=== PATIENT | female | born 1945 | race Caucasian/White ===

== ENCOUNTER 2025-05-07 05:18 | Observation (INO) ==
--- NOTE | 2025-04-24 08:40 | PAT Medication Instructions ---
Medication Instructions Date of Service April 24, 2025 Home Medications latanoprost 0.005 % eye drops 1 drp ophthalmic (eye) HS acetaminophen 500 mg oral powder packet (Tylenol Extra Strength) 500 mg PO Q6H PRN Take morning of surgery With a small sip of water, OTHERWISE NOTHING TO EAT OR DRINK AFTER MIDNIGHT: acetaminophen 500 mg oral powder packet (Tylenol Extra Strength) 500 mg PO Q6H PRN(if needed) Take evening before surgery latanoprost 0.005 % eye drops 1 drp ophthalmic (eye) HS acetaminophen 500 mg oral powder packet (Tylenol Extra Strength) 500 mg PO Q6H PRN(if needed) Other Notes If you have any questions please call us at [phone] or [phone] or [phone] or [phone]
--- NOTE | 2025-04-26 09:03 | Anesthesiology Consultation ---
Date of Service April 26, 2025 Assessment & Plan (1) Encounter for pre-operative examination: - PONV: NO scop patch. - patient states she will have DNR after discussion with POA-is aware that is suspended aguila-operatively. - Outpatient joint assessment: Patient is currently scheduled for inpatient pathway. If re-evaluated and patient/surgeon requests outpatient pathway, patient is not a candidate for outpatient joint program. Chart Review Chart Review: Acceptable Risk for Surgery and Patient seen in Pre Admission Testing Teaching & Discussion Pre-Anesthesia Teaching/Discussion Notes: Instructed NPO after midnight before surgery, except medications with 15 cc of water. Medication instructions provided according to the PAT guidelines. History Surgery Operation Date: 05/07/25 07:00 Proposed Procedures p Left Total Hip Arthroplasty - Robe Calvo MD Height/Weight Height: 5 ft 1 in Weight: 61.5 kg Allergies Allergy/AdvReac Type Severity Reaction Status Date / Time hydrocodone AdvReac Unknown n/v/d Verified 05/07/25 05:25 codeine AdvReac Nausea Verified 05/07/25 05:25 Ephedrine Analogues AdvReac irregular Verified 05/07/25 05:25 heart beat lisinopril AdvReac Cough Verified 05/07/25 05:25 mushroom AdvReac Diarrhea Verified 05/07/25 05:25 scopolamine AdvReac possible Verified 05/07/25 05:25 mental status changes valsartan AdvReac irregular Verified 05/07/25 05:25 heart beat zolpidem [From Ambien] AdvReac Nausea Verified 05/07/25 05:25 Medications Home Medications Medication Instructions Recorded Confirmed Last Taken latanoprost 0.005 % eye drops 1 drp ophthalmic (eye) HS 12/04/24 05/07/25 05/06/25 22:00 acetaminophen 500 mg tablet 1,000 mg (2 x 500 mg) PO TID pain 05/03/25 05/07/25 05/07/25 04:00 (Tylenol Extra Strength) 30 days #180 tabs aspirin 81 mg tablet,delayed 81 mg PO BID 45 days #90 tabs 05/03/25 05/07/25 Unknown release (Aleksandar Low Dose Aspirin) cefadroxil 500 mg capsule 500 mg PO BID 7 days #14 caps 05/03/25 05/07/25 Unknown ketorolac 10 mg tablet 10 mg PO TID pain 5 days #15 tabs 05/03/25 05/07/25 Unknown ondansetron 4 mg disintegrating 4 mg PO Q8 PRN nausea #20 tabs 05/03/25 05/07/25 Unknown tablet sennosides 8.6 mg tablet (Senokot) 8.6 mg PO BID prevent constipation 05/03/25 05/07/25 Unknown 14 days #28 tabs tramadol 50 mg tablet 50 - 100 mg (1 - 2 x 50 mg) PO Q6 05/03/25 05/07/25 Unknown PRN pain #40 tabs Active Medications Generic Name Dose Route Start Last Admin Trade Name Freq PRN Reason Stop Dose Admin Acetaminophen 1,000 mg 05/07/25 06:00 05/07/25 05:55 Acetaminophen 500 Mg Tab PO 05/07/25 18:00 Not Given PREOP KEYON Celecoxib 200 mg 05/07/25 06:00 05/07/25 05:55 Celebrex 200 Mg Cap PO 05/07/25 18:00 200 mg PREOP KEYON Administration Dexamethasone Sodium Phosphate 10 mg 05/07/25 06:00 05/07/25 05:55 DexamethasonePf 10 Mg/Ml Vial IV 05/07/25 18:00 10 mg PREOP KEYON Administration Famotidine 20 mg 05/07/25 06:00 05/07/25 05:55 Famotidine 20 Mg Tab PO 05/07/25 18:00 20 mg PREOP KEYON Administration Lactated Ringer's 1,000 mls @ 60 mls/hr 05/07/25 06:00 05/07/25 05:56 Lr IV 05/07/25 22:39 Not Given .[id number] KEYON Lactated Ringer's 1,000 mls @ 15 mls/hr 05/07/25 06:00 05/07/25 05:55 Lr IV 05/07/25 18:00 15 mls/hr .Q24H KEYON Administration Metoclopramide HCl 10 mg 05/07/25 06:00 05/07/25 05:55 Metoclopramide Hcl 10 Mg Tablet PO 05/07/25 18:00 10 mg PREOP KEYON Administration Past Medical History Medical History History of postoperative nausea and vomiting pt states had significant PONV after hernia repair and therefore was given a scopolamine patch for a subsequent surgery (unsure which) and feels that scopolamine patch caused mental status changes Elevated blood pressure reading without diagnosis of hypertension PCP monitoring Low back pain History of non anemic vitamin B12 deficiency Cervical radiculopathy follows with [facility] pain clinic Glaucoma Osteoarthritis Patient denies h/o stroke, seizures, heart attack, heart failure, DM, blood clots/DVTs or blood transfusions. Exercise / Class Metabolic Activity III < 4 Walking/Shop/Light housework (ambulates with cane, denies chest discomfort or shortness of breath with usual activities) Past Family History Family History Father Myocardial infarction Mother Stroke Denies family history of Ovarian cancer Prostate cancer Diabetes Breast cancer Lung cancer Colorectal cancer Hypertension Past Surgical History Surgical History History of wisdom tooth extraction History of total hip replacement R KAREN 2018 History of inguinal hernia repair Past Anesthesia History No Family Hx of Anesthesia Complications and Other (mental status changes and hypotension with two surgeries-pt cannot recall which procedures) History of PONV No Hx of Motion Sickness and History of PONV (adverse effects with scop patch) Social History Smoking Status: Never smoker Do You Dip or Chew Tobacco: No Hx Alcohol Use: Yes Alcohol type: beer, wine and hard liquor alcohol intake frequency: a few times a week Hx Substance Use: No Review of Systems Patient denies chest pain, shortness of breath, dyspnea on exertion, snoring, witnessed apneas, reflux, fever, chills, cough, wheezing, or palpitations. Physical Exam Vital Signs Last Vital Signs Temp 36.6 C 05/07/25 05:38 Pulse 43 L 05/07/25 05:38 Resp 18 05/07/25 05:38 BP 158/93 H 05/07/25 05:38 Pulse Ox 97 05/07/25 05:38 O2 Del Method Room Air 05/07/25 05:38 Vitals BP 143/79 P 79 TEMP 97.9 SP02 95% on RA RESP 18 Physical Patient resting comfortably in chair in no acute distress, alert and oriented, responding appropriately throughout visit Full cervical extension range of motion without pain TMD 3.5 finger breadths Mallampati Score 2 Dentition: two crowns, denies chipped or loose teeth, caps, implants or bridges Lungs: normal respiratory effort. Good air movement, clear throughout to auscultation, no adventitious breath sounds Cardiac: regular rate and rhythm, no murmurs noted Carotid arteries: negative bruit bilat Lab Results Anesthesia Preop Results Results Anesthesia Widget: WBC 5.98 K/ul (4.8-10.8) 04/26/25 Hgb 12.0 g/dl (12.0-16.0) 04/26/25 Hct 35.6 % (37.0-47.0) L 04/26/25 Plt 226 K/uL (130-400) 04/26/25 Na 138 mmol/L (136-145) 04/26/25 K 3.7 mmol/L (3.5-5.1) 04/26/25 Cl 105 mmol/L (98-107) 04/26/25 CO2 27 mmol/L (21-32) 04/26/25 BUN 13 mg/dl (6-23) 04/26/25 Creat 0.65 mg/dl (0.6-1.2) 04/26/25 Glucose Level 131 mg/dl (70-99(Fasting)) H 04/26/25 PT 10.7 Seconds (9.0-12.0) 04/26/25 PTT 30 Seconds (21-31) 04/26/25 INR 1.0 (0.9-1.1) 04/26/25 Blood Type A Positive 04/26/25 Antibody Screen NEGATIVE 04/26/25 Testing Electrocardiogram Date: 04/26/25 NSR, rate 67 bpm Chest X-Ray Date: 04/26/25 No active disease in the chest.
[2025-05-07] MEDS: LR 500ML BOLUS, THEN 15ML/HR IV SCH (05:55)
[2025-05-07] MEDS: CeleBREX 200 MG CAP PO SCH (05:55)
[2025-05-07] MEDS: FAMOTIDINE 20 MG TAB PO SCH (05:55)
[2025-05-07] MEDS: ACETAMINOPHEN 500 MG TAB PO SCH ×2 (05:55→14:01)
[2025-05-07] MEDS: dexAMETHasone**PF** 10 MG/ML VIAL IV SCH (05:55)
[2025-05-07] MEDS: METOCLOPRAMIDE HCL 10 MG TABLET PO SCH (05:55)
[2025-05-07] MEDS: LR 60ML/HR IV SCH (05:56)
[2025-05-07] MEDS ORDERED: LIDOCAINE 2% 2 ML VIAL/AMP(20MG/ML) INFIL ONE (06:19)
[2025-05-07] MEDS ORDERED: MIDAZOLAM HCL 1 MG/ML 2ML VIAL ONE (06:19)
[2025-05-07] MEDS ORDERED: GLYCOPYRROLATE 0.2 MG/ML VIAL ONE ×3 (06:22→08:15)
[2025-05-07] MEDS ORDERED: PROPOFOL IV EMULSION 10 MG/ML 100 ML VIAL IV ONE (06:28)
[2025-05-07] MEDS ORDERED: BUPIVACAINE 0.5 % 5 MG/1 ML PF 10ML VIAL ONE (06:31)
--- NOTE | 2025-05-07 06:44 | History & Physical Bridge Note ---
Date of Service May 07, 2025 History & Physical Bridge Note I have examined the patient, reviewed the History & Physical and in the interval since the performance of the History & Physical I have noted the following changes of clinical significance: no changes noted
[2025-05-07] MEDS ORDERED: ATROPINE SULFATE 0.1 MG/ML 10ML SYR IV PRN (06:48)
[2025-05-07] MEDS: TRANEXAMIC ACID 1,000 MG **IV Pre-op IV SCH (06:48)
[2025-05-07] MEDS ORDERED: ONDANSETRON INJ 2 MG/ML 2 ML VIAL ONE (07:06)
[2025-05-07] MEDS ORDERED: PHENYLEPHRINE HCL 10 MG/ML VIAL ONE (07:19)
[2025-05-07] MEDS: BUPIVACAINE/EPINEPHRINE 0.5% MPF 1:200,000 30 ML VIAL ONE (07:42)
[2025-05-07] MEDS ORDERED: ESMOLOL HCL INJ 10 MG/ML 10ML VIAL IV ONE (07:53)
--- NOTE | 2025-05-07 09:02 | Operative Report ---
PG Post Operative Report Pre & Post Diagnosis Operation Date: 05/07/25 07:00 Pre-Op Diagnosis: Arthritis of Left Hip Post-Op Diagnosis: Arthritis of Left Hip I identified the patient and participated in the time-out.: Yes Procedure Operation Date: 05/07/25 07:00 Actual Procedures p Left hybrid total Hip Arthroplasty(Left) - Robe Calvo MD Surgeon Robe Calvo MD Cnc Lathe Machine Operator Karel Cueva PA-C Estimated Blood Loss 100 Findings Consistent with Post-Op Diagnosis Operative findings revealed a significant left hip joint effusion. She did have full-thickness cartilage loss but not much in the way of eburnation or osteophyte formation. 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 Specimens Left femoral head sent for pathology. Anesthesia Type Spinal MAC Complications none Disposition Accompanied Patient To Recovery: No Indications Patient is an 80-year-old fairly active independent female whose had a several year history of increasing left hip pain discomfort Singly worse over the past year. She has been through extensive conservative treatment which became less successful over time. She does have a known history of some back issues as well. She failed conservative measures and elected proceed with total hip arthroplasty. Description of Procedure Operative implants consist of: 1 Biomet G7 size 48 mm acetabular shell. 2. 6.5 cancellous acetabular screws 1 of 35 mm in length and wide 20 mm length. 3. Metal dual mobility metal articular liner with a 48 mm outer diameter and 38 mm inner diameter. 4. Tye size 3 high offset cemented femoral stem. 5. +5/32 mm ceramic articular ball with a 38 mm outer diameter dual mobility liner. The patient was taken to the op room, identified, placed on the operating table in the supine position. All conductors were appropriately padded. IV antibiotics fibra anesthesia team. A spinal anesthetic been implemented holding area. Arevalo catheter was placed in sterile fashion for the patient then placed in the right lateral decubitus position. An axillary roll was placed. A stool Birkett position was used for positioning. The left hip and leg were then pre pped and draped in usual sterile fashion. A posterolateral approach to the left hip was then performed through a curvilinear incision centered over the greater trochanter. Sharp dissection was Through subcutaneous tissue down to level the IT band gluteal fascia. The IT band gluteal fascia was sized longitudinally in line with skin incision. The underlying greater bursa was excised. The piriformis and external rotators along with the posterior joint capsule were then released in the posterior aspect of the hip as a single layer. Great care was taken throughout the procedure protect the sciatic nerve at all times. Hip was internally rotated and dislocated. A femoral neck osteotomy cut was made with Final Cut about 10 mm above the lesser trochanter. Femoral head was removed and sent for pathology. The femur was retracted anteriorly. Attention then drawn the acetabulum. The acetabulum was excised. The Pulvinal fat was excised. Sequential reaming the acetabular was then performed with size 43 and progressing up to 47. I reamed a little bit with a 48 reamer and then placed a 48 mm Biomet G7 acetabular shell in about 40 degree lateral opening and 20 degrees of anteversion. It was fixed with two 6.5 screws. A trial liner was placed. Attention drawn the femur. The proximal femur was entered with cookie-cutter followed by canal finder lateralizing reamer. I then broached begin with size 1 progressing up to 3. We got excellent fit with a size 3. I then trialed the hip and the +5 articular ball provided appropriate stability. We did elect to use a dual mobility c onstruct due to her chronic abductor deficiency and her fairly good hip motion preoperatively. Attention drawn to replace these components. NuPrep all trial components were removed. A dual mobility acetabular liner was placed. A small cement restrictor was placed. A double batch Palko T cement was mixed. The cement was then injected in the canal. A size 3 high offset cemented Tye femoral stem was then placed. All extraneous cement was removed. Once the cement hardened a +5/32 mm ceramic articular ball with 38 mm a dual mobility liner was then placed. Hip was located once again found to be stable. Attention drawn toward closing. The wound was irrigated coconuts pulsatile lavage solution. I did inject locally with 60 cc of half percent Marcaine with epinephrine. I examined the hip abductors and there really was not much to repair. The posterior capsule and external rotators were then repaired to drawls in the posterior trochanter with #2 Tycron suture. The IT band gluteal fascia then closed #1 PDS suture in a running fashion the subcutaneous tissue then closed with 2 layers of the deep layer #1 Vicryl suture and subcutaneous tissues with 2-0 Dexon suture in a burie d interrupted fashion. Skin was then closed with skin whitney. Leg was then cleaned and dried and a sterile dressing with Xeroform, 4 fours, ABD pad and foam tape was applied. The patient then transferred to the recovery room in stable condition. Patient tolerated procedure well and there are no complications. Karel Cueva, my physician appeals assistant, was present for the entire procedure. His assistance was required for proper patient positioning, prepping and draping, surgical exposure, retraction, perform the technical details of the operation, placement of the implants, closure of the incision site, placement of postoperative sterile bandage. I attest to the content of the Intraoperative Record and any orders documented therein. Any exceptions are noted below.
--- NOTE | 2025-05-07 09:23 | XRay Report ---
XR hip 1V LT w pelvis HISTORY: 80 years-old Female IN PACU - Post Surgical left hip arthroplasty COMPARISON: Radiographs 03/04/2025 TECHNIQUE: AP view of the pelvis with crosstable lateral view of the left hip FINDINGS: Unchanged appearance of the right hip arthroplasty. Severe degeneration of the pubic symphysis. A lef t hip arthroplasty demonstrates satisfactory alignment and expected postoperative soft tissue swellin g with deep tissue air and lateral skin whitney. No acute fracture, dislocation or unexpected opaque foreign body. IMPRESSION: Satisfactory alignment of the left hip arthroplasty. ACT 112: Negative or not required by law. The above report was generated using voice recognition software. It may contain grammatical, syntax o r spelling errors. Electronically signed by: Ochoa De La Rosa M.D. 05/07/2025 9:22 AM
--- NOTE | 2025-05-07 09:30 | Electrocardiogram Report ---
Test Reason : Blood Pressure : */* mmHG Vent. Rate : 106 BPM Atrial Rate : 163 BPM P-R Int : 178 ms QRS Dur : 82 ms QT Int : 294 ms P-R-T Axes : 51 11 209 degrees QTcB Int : 390 ms Poor data quality, interpretation may be adversely affected Sinus rhythm with frequent PACs in a pattern of atrial bigeminy Possible Left atrial enlargement Abnormal ECG Confirmed by Jone Davis ([id number]) on 05/07/2025 9:30:10 AM Referred By: Robe Calvo Confirmed By: Jone Davis
--- NOTE | 2025-05-07 09:33 | Anesthesiology Progress Note ---
Date of Service May 07, 2025 Anesthesia Post Procedure Vital Signs Vital Signs: Temp Pulse Pulse Resp BP Pulse Ox O2 Del Method 05/07/25 09:20 108 H 16 130/58 L 98 Room Air 05/07/25 09:10 103 H 13 133/58 L 96 Room Air 05/07/25 09:00 103 H 20 122/41 L 100 Room Air 05/07/25 08:53 36.0 C L 105 H 14 111/39 L 96 Oxymask 05/07/25 05:38 36.6 C 43 L 18 158/93 H 97 Room Air O2 Flow Rate 05/07/25 09:20 05/07/25 09:10 05/07/25 09:00 05/07/25 08:53 10 05/07/25 05:38 Pain Intensity Left Hip: Pain Intensity: 8 Transfer of Care Handoff Completed per policy Notes Mental Status: alert / awake / arousable and participated in evaluation Patient Amnestic to Procedure: Yes Nausea / Vomiting: adequately controlled Pain: adequately controlled Airway Patency, RR, SpO2: stable & adequate BP & HR: stable & adequate Hydration State: stable & adequate Neuraxial Anesthesia: was administered and sensory block is resolving Anesthetic Complications: no major complications apparent and Pt Satisfied with anesthetic care Notes: Patient's ECG changed intraop so a 12 lead ECG was done in recovery. I spoke with cardiology for a formal reading and on-call cards provider stated it was fr equent PAC's in pattern of atrial bigeminy and should return to sinus rhythm and no further cards workup needed at this time. She will go to telemetry unit to be on constant monitor in case her condition changes. All questions answered and patient ok for transfer as the spinal block is resolving.
[2025-05-07] MEDS: ONDANSETRON INJ 2 MG/ML 2 ML VIAL IV PRN ×2 (09:47→20:37)
[2025-05-07] MEDS: PROMETHAZINE 6.25 MG/50.25 ML BAG IV STA ×2 (10:16→10:52)
[2025-05-07] MEDS ORDERED: MAGNESIUM HYDROXIDE SUSP 30 ML UDC PO PRN (13:11)
[2025-05-07] MEDS ORDERED: METOCLOPRAMIDE HCL INJ 5 MG/ML 2 ML VIAL IV PRN (13:11)
[2025-05-07] MEDS ORDERED: ALUMINUM/MAGNESIUM SUSP 30 ML UDC PO PRN (13:11)
[2025-05-07] MEDS ORDERED: NALOXONE HCL 0.4 MG/1 ML VIAL/CARP IV PRN (13:11)
[2025-05-07] MEDS: KETOROLAC TROMETHAMINE 15 MG/ML VIAL IV SCH (14:01)
[2025-05-07] MEDS: SODIUM CHLORIDE 0.9% 1,000 ML IV SCH (14:02)
--- NOTE | 2025-05-07 14:08 | Hospitalist Consultation ---
"Date of Consultation May 07, 2025 Assessment & Plan (1) Tachycardia: (2) Elevated blood pressure reading without diagnosis of hypertension: Plan Blanche is a 80F with a PMHx of cervical radiculopathy, cervical spine stenosis, elevate BP who presented to the hospital for elective surgery with Dr. Calvo. With elevated BP and tachycardia intraop - hospital medicine consulted for management. #Elevated BP | Tachycardia PCP notes home BPs 140s systolic not started on meds because of her age. Monitor BPs with Pain control, consider low dose metoprolol to help with PACs as well Pt had EKG changes intraop - PACU EKG with PACs and bigeminy. Anesthesiology spoke to cardiology who recommended telemetry monitoring BMP and Mag Now Repeat EKG in AM #S/P left total Hip arthroplasty - with Dr. Calvo 05/07 management per surgery We will follow up for AM labs. Thank you for allowing us to participate in the care of this patient, please reach out with any questions or concerns. Hospital medicine will continue to follow Supervising Physician Co-Signing Physician Notes Patient was seen and examined independently I discussed the case with Marilyn Leyva I reviewed pertinent past medical social family history and also the plan of care and agree with the plan of care. Patient resting comfortably companied by her daughter many questions regarding sleep she is off her sleep aids and will take Seroquel at bedtime tonight. I reviewed her monitor results with the monitor pari mutuel clerk. No significant ectopic clusters noted Exam is regular lungs are clear she is got a wedge in place for her recent hip surgery Patient has no untoward events overnight or organize collections of arrhythmia she will likely be discharged in the morning. Continue home medications as written by Ms. Leyva Any exceptions will be noted below History of Present Illness Reason for Consultation: HTN Requesting Physician: Dr. Calvo Attending Physician: Robe Calvo MD History of Present Illness Blanche is a 80F with a PMHx of cervical radiculopathy, cervical spine stenosis, elevate BP who presented to the hospital for elective surgery with Dr. Calvo. Patient seen resting in bed post op. Reports having pain in her legs. Does have restless legs at baseline, does not take medication for this, comes and goes on its own. Does report that she has had the sensation of extra beats in the past and usually she just rests until it goes away. She does not denote any abnormal feeling right now. She does not take any medication for this at home. States that she has had elevated blood pressure in the past usually around 140 systolic at home but reports it has been up to over 200 but then usually comes down quickly. Not on any medications. Discussed that we will work towards pain control and if her blood pressure remains a may have to start her on blood pressure medications Allergies Allergy/AdvReac Type Severity Reaction Status Date / Time hydrocodone AdvReac Unknown n/v/d Verified 05/07/25 05:25 codeine AdvReac Nausea Verified 05/07/25 05:25 Ephedrine Analogues AdvReac irregular Verified 05/07/25 05:25 heart beat lisinopril AdvReac Cough Verified 05/07/25 05:25 mushroom AdvReac Diarrhea Verified 05/07/25 05:25 scopolamine AdvReac possible Verified 05/07/25 05:25 mental status changes valsartan AdvReac irregular Verified 05/07/25 05:25 heart beat zolpidem [From Ambien] AdvReac Nausea Verified 05/07/25 05:25 Home Medications Medication Instructions Recorded Confirmed Type latanoprost 0.005 % eye drops 1 drp ophthalmic (eye) HS 12/04/24 05/07/25 History acetaminophen 500 mg tablet 1,000 mg (2 x 500 mg) PO TID pain 05/03/25 05/07/25 Rx (Tylenol Extra Strength) 30 days #180 tabs aspirin 81 mg tablet,delayed 81 mg PO BID 45 days #90 tabs 05/03/25 05/07/25 Rx release (Aleksandar Low Dose Aspirin) cefadroxil 500 mg capsule 500 mg PO BID 7 days #14 caps 05/03/25 05/07/25 Rx ketorolac 10 mg tablet 10 mg PO TID pain 5 days #15 tabs 05/03/25 05/07/25 Rx ondansetron 4 mg disintegrating 4 mg PO Q8 PRN nausea #20 tabs 05/03/25 05/07/25 Rx tablet sennosides 8.6 mg tablet (Senokot) 8.6 mg PO BID prevent constipation 05/03/25 05/07/25 Rx 14 days #28 tabs tramadol 50 mg tablet 50 - 100 mg (1 - 2 x 50 mg) PO Q6 05/03/25 05/07/25 Rx PRN pain #40 tabs Patient History Medical History (Updated 05/07/25 @ 14:41 by Marilyn Rivera PA-C) History of postoperative nausea and vomiting pt states had significant PONV after hernia repair and therefore was given a scopolamine patch for a subsequent surgery (unsure which) and feels that scopolamine patch caused mental status changes Elevated blood pressure reading without diagnosis of hypertension PCP monitoring Low back pain History of non anemic vitamin B12 deficiency Cervical radiculopathy follows with [facility] pain clinic Glaucoma Osteoarthritis Surgical History History of wisdom tooth extraction History of total hip replacement R KAREN 2019 History of inguinal hernia repair Family History Father Myocardial infarction Mother Stroke Denies family history of Ovarian cancer Prostate cancer Diabetes Breast cancer Lung cancer Colorectal cancer Hypertension Social History Smoking Status: Never smoker Second Hand Exposure: No; Do You Dip or Chew Tobacco: No; Tobacco Cessation Education Requested by Patient: No Hx Alcohol Use: Yes Alcohol type: beer, wine and hard liquor Alcohol Intake Frequency: 2-4 x/Month Hx Substance Use: No Preferred Language: Salvadorean Communication Ability: Effective Visual Impairment: Limited Hearing Ability: Normal Special Programs Director Required: No Beliefs That Will Affect Care: None marital status: / Current Living Situation: Alone current occupational status: retired 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, 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, 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 How many Children do You have: 1 Other Information That Helps Us Care for You: No Feels Safe at Home: Yes Safety Concerns: Feels Safe At This Time Childhood Exposure to Second-Hand Smoke: No caffeine: Yes Dental Care, Regularly: Yes Physical Activity Frequency: Daily Physical Activity Frequency Comment: daily walks Seatbelt Use: always Sunscreen Use: No Assistive Devices: Cane and Glasses Review of Systems Review of Systems: All systems reviewed & are unremarkable except as noted in Subjective Physical Exam Physical Exam: General: NAD, VS as above Resp: normal respiratory effort, lungs clear to auscultation CV: tachycardia, no murmur, Abd: normal bowel sounds, non tender, no hepatosplenomegaly Extremities: Moves all extremities, SCDs in place Neuro: A&O x3, Results & Data Results & Data Vital Signs (Past 12 Hours) Vital Signs Temp Pulse Pulse Resp BP Pulse Ox O2 Del Method 05/07/25 13:20 97.5 F L 105 H 18 159/75 H 97 Room Air 05/07/25 12:00 97.2 F L 111 H 16 167/70 H 94 Room Air 05/07/25 11:30 97.2 F L 112 H 18 166/85 H 94 Room Air 05/07/25 11:30 115 H 14 170/90 H 95 Room Air 05/07/25 11:15 121 H 21 177/70 H 98 Room Air 05/07/25 11:00 115 H 24 179/100 H 97 Room Air 05/07/25 10:45 116 H 21 184/108 H 93 Room Air 05/07/25 10:30 133 H 19 160/67 H 97 Room Air 05/07/25 10:15 106 H 17 169/65 H 97 Room Air 05/07/25 10:00 105 H 18 149/80 H 96 Room Air 05/07/25 09:45 106 H 21 146/75 H 96 Room Air 05/07/25 09:40 106 H 12 150/45 H 99 Room Air 05/07/25 09:30 101 H 15 146/57 H 96 Room Air 05/07/25 09:20 97.5 F L 108 H 16 130/58 L 98 Room Air 05/07/25 09:10 103 H 13 133/58 L 96 Room Air 05/07/25 09:00 103 H 20 122/41 L 100 Room Air 05/07/25 08:53 96.8 F L 105 H 14 111/39 L 96 Oxymask 05/07/25 05:38 97.9 F 43 L 18 158/93 H 97 Room Air O2 Flow Rate 05/07/25 13:20 05/07/25 12:00 05/07/25 11:30 05/07/25 11:30 05/07/25 11:15 05/07/25 11:00 05/07/25 10:45 05/07/25 10:30 05/07/25 10:15 05/07/25 10:00 05/07/25 09:45 05/07/25 09:40 09/02/25 09:30 05/07/25 09:20 05/07/25 09:10 05/07/25 09:00 05/07/25 08:53 10 05/07/25 05:38 PG Care Time/CCT Total # of Minutes Spent Total Time Spent with Patient: Total time spent is greater than 50% in coordination of care (as documented) at patient's floor/unit and/or counseling patient: Coding Level of Care Code 46281 IN/OBS CONSULT LVL 3,45M Diagnoses Tachycardia R00.0 Elevated blood pressure reading without diagnosis of hypertension R03.0"
[2025-05-07 15:33] LABS: Anion Gap 10.0 (3-11); Blood Urea Nitrogen 10.0 mg/dl (6-23); Calcium 8.8 mg/dl (8.6-10.3); Carbon Dioxide 25.0 mmol/L (21-32); Chloride 104.0 mmol/L (98-107); Creatinine Clr Calc Pharmacy 63.3 ml/min; Glucose 158.0 mg/dl (70-99(Fasting)); Magnesium 1.7 mg/dl (1.7-2.4); Potassium 3.7 mmol/L (3.5-5.1); Sodium 139.0 mmol/L (136-145)
[2025-05-07] MEDS: PROMETHAZINE HCL INJ 25 MG/ML 1 ML VIAL ONE (15:41)
[2025-05-07] MEDS: diphenhydrAMINE 50 MG/ML VIAL IV STA (15:42)
[2025-05-07] MEDS: TRANEXAMIC ACID / 0.7% NACL 1,000 MG/100 ML BAG IV SCH (16:20)
[2025-05-07] MEDS: MULTIVITAMIN TAB PO SCH (16:20)
[2025-05-07] MEDS: ASCORBIC ACID 500 MG TAB PO SCH (18:24)
[2025-05-07] MEDS: LATANOPROST 0.005% OP SOLN 2.5 ML BTL OP SCH (20:17)
[2025-05-07] MEDS: SENNA 8.6 MG TAB PO SCH (20:17)
[2025-05-07] MEDS: ASPIRIN 81 MG ECTAB PO SCH (20:17)
[2025-05-07] MEDS: DOCUSATE SODIUM 100 MG CAP PO SCH (20:17)
[2025-05-07] MEDS ORDERED: SENNA 8.6 MG TAB PO SCH (21:00)
[2025-05-07] MEDS: MELATONIN 3 MG TAB PO PRN (23:20)
[2025-05-08] MEDS: HYDROmorphone INJ 0.5 MG/0.5 ML SYR IV PRN (00:54)
[2025-05-08 07:06] VITALS: PULSE 76; RESP 18; TEMP 97.9; O2SAT 90
--- NOTE | 2025-05-08 08:02 | Orthopedic Progress Note ---
Date of Service May 08, 2025 Assessment & Plan (1) S/P total left hip arthroplasty: * Continue Current Treatment * Disposition: home * Daily treatment: Physical Therapy/ Occupational Therapy per protocol * Weight bearing status: WBAT, hip precautions * Continue to monitor for ABLA * Pain control * DVT prophylaxis, ASA * Office/hospital f/u 2 weeks for progress check and staple/suture removal * Plan for discharge today pending PT/OT clearance Subjective . Active Problems: S/p left KAREN POD 1 80 y/o female s/p left KAREN. Doing well overall, pain managed and improved function. Denies fever/chills, chest pain/SOB, nausea/vomiting. Otherwise no com plaints. Review of Systems All systems reviewed & are unremarkable except as noted in HPI & below. Physical Exam . * General: Alert and oriented, no acute distress * Constitutional: well-developed, well-nourished. * Respiratory: Normal respiratory effort, no distress * Gastrointestinal: No tenderness to palpation, no rigidity or guarding. * Skin: No rash or lesion. * Neurologic: Grossly normal * Musculoskeletal: left hip surgical dressing CDI, not removed for exam. Otherwise no obvious deformity or overlying skin changes. Diffuse TTP proximal thigh and hip region. Otherwise no specific tenderness of distal thigh, lower leg, foot/ankle. AROM hip flexion intact. AROM foot/ankle intact. Sensation i ntact plantar/dorsal foot. Brisk capillary refill. Results & Data Results & Data Laboratory Results . Diagnostic Findings . Hip/Pelvis X-Ray 05/07/25 08:55 XR hip 1V LT w pelvis HISTORY: 80 years-old Female IN PACU - Post Surgical left hip arthroplasty COMPARISON: Radiographs 03/04/2025 TECHNIQUE: AP view of the pelvis with crosstable lateral view of the left hip FINDINGS: Unchanged appearance of the right hip arthroplasty. Severe degeneration of the pubic symphysis. A left hip arthroplasty demonstrates satisfactory alignment and expected postoperative soft tissue swelling with deep tissue air and lateral skin whitney. No acute fracture, dislocation or unexpected opaque foreign body. IMPRESSION: Satisfactory alignment of the left hip arthroplasty. ACT 112: Negative or not required by law. The above report was generated using voice recognition software. It may contain grammatical, syntax or spelling errors. Electronically signed by: Ochoa De La Rosa M.D. 05/07/2025 9:22 AM PG Care Time/CCT Total # of Minutes Spent Total Time Spent with Patient: Total time spent is greater than 50% in coordination of care (as documented) at patient's floor/unit and/or counseling patient: Coding Level of Care Code 30362 Post Operative Follow-Up Diagnoses S/P total left hip arthroplasty Z96.642
[2025-05-08 08:04] LABS: Hematocrit (blood only) 29.3 % (37.0-47.0); Hemoglobin 9.7 g/dl (12.0-16.0); Immature Granulocytes # (auto) 0.03 K/uL (0.01-0.20); Immature Granulocytes % (auto) 0.3 %; Mean Corpuscular Hemoglobin 32.3 pg (25.0-34.0); Mean Corpuscular Volume 97.7 fL (80.0-100.0); Platelet Count 228 K/uL (130-400); RDW Standard Deviation 44.2 fL (36.4-46.3); Red Blood Count 3.00 M/uL (4.20-5.40); White Blood Count 10.42 K/ul (4.8-10.8)
[2025-05-08 08:23] LABS: Anion Gap 6.0 (3-11); Blood Urea Nitrogen 13.0 mg/dl (6-23); Calcium 8.4 mg/dl (8.6-10.3); Carbon Dioxide 26.0 mmol/L (21-32); Chloride 106.0 mmol/L (98-107); Creatinine Clr Calc Pharmacy 48.5 ml/min; Glucose 97.0 mg/dl (70-99(Fasting)); Potassium 3.8 mmol/L (3.5-5.1); Sodium 138.0 mmol/L (136-145)
[2025-05-08] MEDS: dexAMETHasone 10 MG in SYRINGE 0 ML IV SCH (08:48)
[2025-05-08 12:29] VITALS: BP 122/55
--- NOTE | 2025-05-08 13:07 | Hospitalist Progress Note ---
"Date of Service May 08, 2025 Assessment & Plan (1) Tachycardia: (2) Elevated blood pressure reading without diagnosis of hypertension: Plan Blanche is a 80F with a PMHx of cervical radiculopathy, cervical spine stenosis, elevate BP who presented to the hospital for elective surgery with Dr. Calvo. With elevated BP and tachycardia intraop - hospital medicine consulted for management. #Elevated BP | Tachycardia PCP notes home BPs 140s systolic not started on meds because of her age. BPs much improved with pain control. Pt had EKG changes intraop - PACU EKG with PACs and bigeminy. Anesthesiology spoke to cardiology who recommended telemetry monitoring. No events on telemetry #S/P left total Hip arthroplasty - with Dr. Calvo 05/07 management per surgery Thank you for allowing us to participate in the care of this patient, please reach out with any questions or concerns. Hospital medicine will sign off. Agree with stable for discharge. Admission and Anticipated Discharge Date Admission Date: May 07, 2025 Subjective patient seen sitting up in the chair, pain well controlled no BM yet no further chest palpitations Review of Systems Review of Systems: All systems reviewed & are unremarkable except as noted in Subjective Physical Exam Physical Exam: General: NAD, VS as above Resp: normal respiratory effort, lungs clear to auscultation CV: RRR, no murmur, Abd: normal bowel sounds, non tender, Extremities: Moves all extremities, Neuro: A&O x3, Results & Data Results & Data Vital Signs (Past 12 Hours) Vital Signs Temp Pulse Pulse Resp BP BP Pulse Ox 05/08/25 12:20 97.9 F 103 H 76 18 118/56 L 122/55 L 90 05/08/25 07:04 97.9 F 76 18 118/56 L 90 05/08/25 03:42 97.5 F L 103 H 20 122/55 L 95 O2 Del Method 05/08/25 12:20 05/08/25 07:04 Room Air 05/08/25 03:42 Room Air Laboratory Results cbc and chemistry reviewed PG Care Time/CCT Total # of Minutes Spent Total Time Spent with Patient: Total time spent is greater than 50% in coordination of care (as documented) at patient's floor/unit and/or counseling patient: Coding Level of Care Code 37782 SUB INP/OBS CARE 2/35MIN Diagnoses Tachycardia R00.0 Elevated blood pressure reading without diagnosis of hypertension R03.0"
== END 2025-05-08 12:45 | disposition home health service (06) ==
LOC: PACUINP 05:18 → ASU 05:18 → SUATTDRO 08:55 → 2N 12:56